=== PATIENT | female | born 1955 | race Caucasian/White ===

== ENCOUNTER → 2018-09-23 12:32 | Outpatient (CLI) | payer OTHER, SELFPAY ==
--- NOTE | 2018-09-23 | DI.MG.S_ITS ---
BILATERAL DIGITAL SCREENING MAMMOGRAM 3D/2D WITH CAD: 09/23/2018 CLINICAL: Routine screening. Comparison is made to exams dated: 09/28/2017 mammogram, 09/16/2016 mammogram, and 09/15/2015 mammogram - [facility]. The tissue of both breasts is heterogeneously dense. This may lower the sensitivity of mammography. Current study was also evaluated with a Computer Aided Detection (CAD) system. No significant masses, calcifications, or other findings are seen in either breast. There has been no significant interval change. IMPRESSION: NEGATIVE There is no mammographic evidence of malignancy. A 1 year screening mammogram is recommended. This exam was interpreted at Station ID: [id number]. NOTE: For mammograms, a report in lay terms will be sent to the patient. Approximately 15% of breast malignancies will not be visualized mammographically. In the management of a palpable breast mass, a negative mammogram must not discourage biopsy of a clinically suspicious lesion. Electronically Signed By: Raffy thompson/lacie:09/25/2018 18:09:51 letter sent: Normal Exam ACR BI-RADS Category 1: Negative 3341F
== END ==
PROVIDERS: PCP Nurse Practitioner Family; Visit Provider Nurse Practitioner Family
DX: Z12.31 Encounter for screening mammogram for malignant neoplasm of breast (principal)
CPT/HCPCS: 77063; 77067

== ENCOUNTER → 2019-02-05 14:48 | Outpatient (CLI) | payer OTHER, SELFPAY | PROVIDERS: PCP Internal Medicine; Visit Provider Internal Medicine Endocrinology, Diabetes & Metabolism | DX: M85.852 Other specified disorders of bone density and structure, left thigh (principal); Z78.0 Asymptomatic menopausal state; E07.9 Disorder of thyroid, unspecified; Z90.722 Acquired absence of ovaries, bilateral | CPT/HCPCS: 77080 ==

== ENCOUNTER → 2019-09-28 14:47 | Outpatient (CLI) | payer MEDICARE, OTHER, SELFPAY ==
--- NOTE | 2019-09-28 | DI.MG.S_ITS ---
BILATERAL DIGITAL SCREENING MAMMOGRAM 3D/2D WITH CAD: 09/28/2019 CLINICAL: Routine screening. Comparison is made to exams dated: 09/23/2018 mammogram, 09/28/2017 mammogram, and 09/16/2016 mammogram - [facility]. There are scattered fibroglandular elements in both breasts. Current study was also evaluated with a Computer Aided Detection (CAD) system. No significant masses, calcifications, or other findings are seen in either breast. There has been no significant interval change. IMPRESSION: NEGATIVE There is no mammographic evidence of malignancy. A 1 year screening mammogram is recommended. This exam was interpreted at Station ID: [id number]. NOTE: For mammograms, a report in lay terms will be sent to the patient. Approximately 15% of breast malignancies will not be visualized mammographically. In the management of a palpable breast mass, a negative mammogram must not discourage biopsy of a clinically suspicious lesion. Electronically Signed By: Josue Rodriguez M.D. at/lacie:09/28/2019 15:43:15 letter sent: Normal Exam ACR BI-RADS Category 1: Negative 3341F
== END ==
PROVIDERS: PCP Internal Medicine; Visit Provider Internal Medicine
DX: Z12.31 Encounter for screening mammogram for malignant neoplasm of breast (principal)
CPT/HCPCS: 77063; 77067

== ENCOUNTER → 2020-07-18 14:36 | Outpatient (CLI) | payer MEDICARE, OTHER, SELFPAY ==
[2020-07-19 21:42] LABS: COVID19 Sendout Not Detected (Not Detect)
== END ==
PROVIDERS: PCP Internal Medicine; Visit Provider Physician Assistant
DX: Z01.812 Encounter for preprocedural laboratory examination (principal)
CPT/HCPCS: 87635

== ENCOUNTER 2020-07-21 13:01 | Day surgery (SDC) | payer MEDICARE, OTHER, SELFPAY ==
[2020-07-21] VITALS (7 sets, daily range): BP systolic 97–155; BP diastolic 60–92; PULSE 67–99; RESP 12–17; TEMP 36.4–37.5; O2SAT 99–100; BMI 27.4
--- NOTE | 2020-07-21 12:38 | P.HP_ITS ---
History of Present Illness History of Present Illness Date Patient Seen: 07/21/20 Chief complaint: SDC Narrative: 64 year old female comes in today for consideration of a screening colonoscopy. She has had 4 lifetime colonoscopies. Last colonoscopy in 2013, normal. 5 year recall due to history of colon polyps. There have been no lower GI symptoms suggesting disease such as change in bowel habits, bleeding, abdominal pain or anemia. Mother has a history of colon polyps. Overall health issues have been stable, including no major cardiac events for at least 6 weeks. PCP: Ale Wahl Past medical history: Hyperlipidemia Hypertension Hypothyroidism GERD Depression Allergies Osteoarthritis History of colon polyps Past Surgical History: Thyroid (right Lobe and Isthmus) 11/1993 Thyroid (left Lobe)01/1994 Oopherectomy(right) - 07/1996 Total Knee Arthroplasty(right) - 10/08/2014 Hysterectomy(partial/ left ovary and Uterus) - 1998 Menisectomy (right Knee) - 2009 Tonsillectomy-1983 Family history: Mother: Colon polyps Social History: Dental Care w/in 6 mos.: yes Smoking Status: never smoker Meds Home Medications and Allergies Home Medications Medication Instructions Recorded Confirmed Type [ASCORBIC ACID] 1 tab PO QDAY #0 10/14/17 History [BIOTI] 1 cap PO QDAY #0 10/14/17 History [CITRACAL+D] PO #0 10/14/17 History [FLAXSEED OIL] 1 cap PO QDAY #0 10/14/17 History [KRILL OIL] 1 cap PO QDAY #0 10/14/17 History cyanocobalamin (vitamin B-12) 5,000 mcg SUBLINGUAL QDAY #0 10/14/17 07/21/20 History [Vitamin B-12] esomeprazole magnesium [Nexium] 40 mg PO QDAY #0 10/14/17 07/21/20 History levothyroxine 0.137 mg PO QAM #0 10/14/17 07/21/20 History lisinopril-hydrochlorothiazide 2 tab PO QDAY #0 10/14/17 07/21/20 History atorvastatin 10 mg PO BEDTIME 07/21/20 07/21/20 History sertraline 100 mg PO DAILY 07/21/20 07/21/20 History Allergies Allergy/AdvReac Type Severity Reaction Status Date / Time cephalexin [From Keflex] AdvReac Severe Vomiting Verified 07/21/20 13:18 sulfamethoxazole AdvReac Severe Vomiting Verified 07/21/20 13:18 [From Bactrim] trimethoprim [From Bactrim] AdvReac Severe Vomiting Verified 07/21/20 13:18 Review of Systems Review of Systems ROS: Yes All systems reviewed with the patient and are negative except as otherwise documented Exam Narrative Exam Narrative: GENERAL: Alert and oriented, appearing stated age and in no acute distress. HEENT: Head normocephalic/atraumatic. Pupils equal, round, and reactive to light and accomodation. Extraocular muscles intact. Tympanic membranes clear. Nasal mucosa moist, septum midline. Oral mucosa moist, no lesions. Neck soft and supple, no lymphadenopathy. LUNGS: Clear to ausculation bilaterally, no wheezes, rhonchi or rales. CV: Normal S1 and S2 with regular rate and rhythm, no audible murmurs, rubs or gallops. ABDOMEN: Soft, non-tender, non-distended, no organomegaly. Positive bowel sounds. EXTREMITIES: No clubbing, cyanosis, or edema. NEURO: Cranial nerves II through XII grossly intact, no focal deficits. PSYCH: Alert and oriented x 3. SKIN: No concerning lesions. Assessment & Plan Assessment & Plan narrative: 1. History of colon polyps 2. Family history of colon polyps 3. Screening for colon cancer Plan for colonoscopy. The nature and character of the procedure as well as anticipated results were discussed. The possibility of not completing the procedure was also discussed. Possible complications including aspiration pneum onia, bleeding, perforation and reaction to medications either for sedation or preparation and missed lesions were discussed. Questions were answered and proceeding to the colonoscopy was elected. Informed consent signed. I sincerely appreciate the referral allowing me to participate in this patient's care. Please contact me with any questions or concerns.
--- NOTE | 2020-07-21 12:42 | PM.OP.ENDO ---
Operative Date/Time/Diagnoses Date of procedure: 07/21/20 Procedure Notes SCOAP/Timeout: 2:03 p.m. Procedure in detail: ENDOSCOPIST: Tova Pascual MD Sedation RN: Odette Williamson RN Sedation start time: 2:10 p.m. Sedation end time: 2:25 p.m. PROCEDURE: Colonoscopy INDICATIONS: 1. History of colon polyps 2. Family history polyps 3. Screening for colon cancer MEDICATION: Levsin 0.125 mg sublingual, incremental doses of Versed and fentanyl until appropriate level sedation achieved. ASA CLASS: 2 CECAL WITHDRAWAL TIME: 6 minutes COMPLICATIONS: None. EXTENT OF PROCEDURE: Cecum. QUALITY OF PREP: Good with portions of liquid stool. PROCEDURE: Prior to insertion of the colonoscope, a digital rectal examination was accomplished with circumferential palpation of the distal rectal mucosa without significant findings being noted. The high-definition colonoscope was passed into the rectum in the usual fashion and advanced over to the cecum without difficulty. The ileocecal valve, appendiceal stoma, and medial wall all could be inspected and no abnormalities were seen. ASCENDING COLON: As the colonoscope was withdrawn, care was taken to expose and inspect the haustral folds and no abnormalities were seen. HEPATIC FLEXURE: Normal, no polyps, diverticula or other abnormalities. TRANSVERSE COLON: Normal, no polyps, diverticula or other abnormalities. DESCENDING COLON: Normal, no polyps, diverticula or other abnormalities. SIGMOID COLON: Normal, no polyps, diverticula or other abnormalities. RECTUM: Normal. J maneuver was produced. There was no significant perianal disease. The J maneuver was broken. The remainder of the rectum was inspected and there was no external hemorrhoid disease. The scope was withdrawn. IMPRESSION: 1. Normal colonoscopy PLAN: 1. Secondary to personal history of colon polyps and family history of colon polyps repeat colonoscopy in 5 years. The possibility of a missed lesion including a malignancy has been discussed with the patient previously. Potential alarm symptoms have been discussed and should be reported immediately.
[2020-07-21] MEDS: HYOSCYAMINE 0.125 MG TABLET PO (13:22)
[2020-07-21] MEDS: LACTATED RINGERS 1,000 ML 200 ML IV (13:34)
[2020-07-21] MEDS: MIDAZOLAM 5 MG/5 ML VIAL IV (14:08)
[2020-07-21] MEDS: fentaNYL 250 MCG/5 ML INJ IV (14:15)
== END 2020-07-21 15:18 | disposition home or self-care (01) ==
PROVIDERS: PCP Internal Medicine; Referring Provider Internal Medicine; Visit Provider Student in an Organized Health Care Education/Training Program
PROC: 0DJD8ZZ Inspection of Lower Intestinal Tract, Via Natural or Artificial Opening Endoscopic (ICD-10-PCS; CPT 45378; principal; 2020-07-21 13:45)
DX: Z12.11 Encounter for screening for malignant neoplasm of colon (principal); Z86.010 Personal history of colon polyps; I10 Essential (primary) hypertension; E78.5 Hyperlipidemia, unspecified; E03.9 Hypothyroidism, unspecified; K21.9 Gastro-esophageal reflux disease without esophagitis
CPT/HCPCS: G0105; J2250; J3010

== ENCOUNTER → 2020-09-30 15:43 | Outpatient (CLI) | payer MEDICARE, OTHER, SELFPAY ==
--- NOTE | 2020-09-30 15:46 | DI.MG.S_ITS ---
BILATERAL DIGITAL SCREENING MAMMOGRAM 3D/2D WITH CAD: 09/30/2020 CLINICAL: Routine screening. Comparison is made to exams dated: 09/30/2020 mammogram, 09/28/2019 mammogram, and 09/23/2018 mammogram - [facility]. There are scattered fibroglandular elements in both breasts. Current study was also evaluated with a Computer Aided Detection (CAD) system. No significant masses, calcifications, or other findings are seen in either breast. There has been no significant interval change. IMPRESSION: NEGATIVE There is no mammographic evidence of malignancy. A 1 year screening mammogram is recommended. This exam was interpreted at Station ID: [id number]. NOTE: For mammograms, a report in lay terms will be sent to the patient. Approximately 15% of breast malignancies will not be visualized mammographically. In the management of a palpable breast mass, a negative mammogram must not discourage biopsy of a clinically suspicious lesion. Electronically Signed By: Elma bradford/lacie:09/30/2020 16:34:14 letter sent: Normal Exam ACR BI-RADS Category 1: Negative 3341F
== END ==
PROVIDERS: PCP Internal Medicine; Referring Provider Internal Medicine; Visit Provider Internal Medicine
DX: Z12.31 Encounter for screening mammogram for malignant neoplasm of breast (principal)
CPT/HCPCS: 77063; 77067

== ENCOUNTER → 2021-04-23 14:10 | Outpatient (CLI) | payer MEDICARE, OTHER, SELFPAY | PROVIDERS: PCP Internal Medicine; Referring Provider Internal Medicine Endocrinology, Diabetes & Metabolism; Visit Provider Internal Medicine Endocrinology, Diabetes & Metabolism | DX: Z78.0 Asymptomatic menopausal state (principal); C73 Malignant neoplasm of thyroid gland; E20.9 Hypoparathyroidism, unspecified; E55.9 Vitamin D deficiency, unspecified; M85.852 Other specified disorders of bone density and structure, left thigh; Z90.722 Acquired absence of ovaries, bilateral | CPT/HCPCS: 77080 ==

== ENCOUNTER → 2021-06-25 12:45 | Outpatient (CLI) | payer MEDICARE, OTHER, SELFPAY ==
[2021-06-25 13:42] LABS: High Sensitivity CRP - Cardiac 3.2 mg/L (1.0-3.0)
[2021-06-25 13:43] LABS: Rheumatoid Factor < 8.6 IU/mL (<12.0)
[2021-06-25 13:49] LABS: Erythrocyte Sedimentation Rate 13 MM/HR (0-20)
[2021-06-27 18:17] LABS: ANA Screen, IFA Positive (.)
[2021-07-03 10:35] LABS: HLA B27 Negative (.)
== END ==
PROVIDERS: PCP Internal Medicine; Referring Provider Ophthalmology; Visit Provider Ophthalmology
DX: H15.101 Unspecified episcleritis, right eye (principal); M45.6 Ankylosing spondylitis lumbar region
CPT/HCPCS: 36415; 81374; 85651; 86038; 86140; 86430

== ENCOUNTER → 2021-10-01 13:43 | Outpatient (CLI) | payer MEDICARE, OTHER, SELFPAY ==
--- NOTE | 2021-10-01 13:46 | DI.MG.S_ITS ---
BILATERAL DIGITAL SCREENING MAMMOGRAM 3D/2D WITH CAD: 10/01/2021 CLINICAL: Routine screening. Comparison is made to exams dated: 09/30/2020 mammogram, 09/28/2019 mammogram, and 09/23/2018 mammogram - [facility]. There are scattered fibroglandular elements in both breasts. Current study was also evaluated with a Computer Aided Detection (CAD) system. No significant masses, calcifications, or other findings are seen in either breast. There has been no significant interval change. IMPRESSION: NEGATIVE There is no mammographic evidence of malignancy. A 1 year screening mammogram is recommended. This exam was interpreted at Station ID: [id number]. NOTE: For mammograms, a report in lay terms will be sent to the patient. Approximately 15% of breast malignancies will not be visualized mammographically. In the management of a palpable breast mass, a negative mammogram must not discourage biopsy of a clinically suspicious lesion. Electronically Signed By: Ar Kern M.D., jr/lacie:10/01/2021 14:05:35 letter sent: Normal Exam ACR BI-RADS Category 1: Negative 3341F
== END ==
PROVIDERS: PCP Internal Medicine; Referring Provider Internal Medicine; Visit Provider Internal Medicine
DX: Z12.31 Encounter for screening mammogram for malignant neoplasm of breast (principal)
CPT/HCPCS: 77063; 77067

== ENCOUNTER → 2022-03-08 11:39 | Outpatient (CLI) | payer MEDICARE, OTHER, SELFPAY ==
--- NOTE | 2022-03-08 | DI.MRI.S_ITS ---
PROCEDURE: MR HIP RT WO CON INDICATIONS: Unilateral primary osteoarthritis, right hip TECHNIQUE: Noncontrast coronal T1 spin echo and STIR through the bony pelvis. Coronal and axial T2 fast spin echo with fat saturation, sagittal T1 spin echo, and oblique axial T2 fast spin echo with fat saturation through the hip. COMPARISON: [facility], CR, XR PELVIS WITH LATERAL HIP RIGHT, 02/17/2022, 10:05. FINDINGS: Image quality: Excellent. Bones and joints: Moderate osseous edema is seen within the right femoral head. There is mild flattening of the superior femoral head. There is also osseous edema within the adjacent portion of the right acetabulum. Findings may be related to full-thickness cartilage loss in the right hip versus a possible small right femoral head subchondral insufficiency fracture. There is a moderate right hip effusion. No additional osseous edema is seen. Degenerative changes are seen in the pubic symphysis and in the included lower lumbar spine. Tendons and ligaments: The gluteus medius and minimus tendons appear intact, without associated muscle atrophy. The proximal iliotibial band appears intact. The iliopsoas tendon appears intact, without adjacent bursal fluid collections. The origin of the hamstring tendon is intact at the ischial tuberosity. The direct and indirect heads of the rectus femoris muscle origin appear intact. Labrum and cartilage: Full-thickness cartilage loss is seen throughout the superior portion of the right hip with subchondral edema, flattening of the superior femoral head and mild marginal osteophyte formation. There is diffuse labral degeneration and degenerative tearing. Soft tissues: Visualized muscles demonstrate normal bulk and internal signal. Quadratus femoris muscle demonstrates no internal edema to suggest ischiofemoral impingement. The proximal sciatic neurovascular bundle appears intact. The included portions of the pelvis demonstrate no acute abnormality. IMPRESSION: 1. Moderate osseous edema within the proximal femur with mild flattening of the superior femoral head articular surface may be related to overlying cartilage loss or a possibly a small subchondral insufficiency fracture. 2. Diffuse full-thickness cartilage loss throughout the superior right hip with subchondral edema, marginal osteophyte formation, and a moderate joint effusion. 3. Diffuse labral degeneration and degenerative tearing. 4. Degenerative changes in the lower lumbar spine and pubic symphysis. Dictated by: Sriram Randolph M.D. on 03/08/2022 at 12:49 Approved by: Sriram Randolph M.D. on 03/08/2022 at 12:58
[2022-03-08 13:01] LABS: Add Manual Diff / Slide Review NO; Appearance Urine UA CLEAR; Basophils Absolute Auto 0 /uL (0-100); Basophils Percent Auto 0.6 % (0-2); Bilirubin Urine UA NEGATIVE (NEGATIVE); Color Urine UA YELLOW; Eosinophils Absolute Auto 100 /uL (0-450); Eosinophils Percent Auto 3.2 % (2-4); Glucose Urine UA NEGATIVE (Negative); Hematocrit 35.3 % (36-46); Hemoglobin 12.4 g/dL (12.0-16.0); Ketones Urine UA NEGATIVE (NEGATIVE); Leukocyte Esterase Urine UA NEGATIVE (NEGATIVE); Lymphocytes Absolute Auto 1200 /uL (1100-4500); Lymphocytes Percent Auto 25.8 % (25-40); Mean Corpuscular Hemoglobin 30.8 PG (26-34); Mean Corpuscular Volume 88.1 fL (80-100); Monocytes Absolute Auto 300 /uL (0-900); Monocytes Percent Auto 6.9 % (3-14); Neutrophils Absolute Auto 3000 /uL (1500-7000); Neutrophils Percent Auto 63.5 % (50-75); Nitrite Urine UA NEGATIVE (Negative); Occult Blood Urine UA NEGATIVE (Negative); Platelet Count 198 X10^3/uL (150-400); Protein Urine UA NEGATIVE (Negative); Red Blood Cell Count 4.01 X10^6/uL (4.0-5.2); Urobilinogen Urine UA 0.2 E.U./dL (0.2); White Blood Cell Count 4.7 X10^3/uL (4.5-11.0)
[2022-03-08 13:04] LABS: pH Urine UA 7.5 (4.5-8.0)
[2022-03-08 13:11] LABS: Bacteria Urine None Seen; Culture Indicated Urine Cult Not Indicated; RBC Urine None Seen (0-5/HPF); Squamous Epithelial Cell Urine 0-1 /HPF (0-5/HPF); WBC Urine None Seen (0-5/HPF)
[2022-03-08 13:12] LABS: Hemoglobin A1C% w Est Avg Glu 5.2 % (4.0-6.0)
[2022-03-08 13:14] LABS: BUN Creatinine Ratio 17.2 (6-22); Blood Urea Nitrogen 15 mg/dL (7-17); Calcium 8.9 mg/dL (8.4-10.2); Carbon Dioxide 28 mmol/L (22-32); Chloride 99 mmol/L (98-107); Estimated Glomerular Filt Rate > 60 mL/min (>60); Glucose 109 mg/dL (80-110); HEMOLYSIS < 15 (0-50); Potassium 3.6 mmol/L (3.4-5.1); Sodium 135 mmol/L (137-145)
== END ==
PROVIDERS: PCP Internal Medicine; Referring Provider Orthopaedic Surgery; Visit Provider Orthopaedic Surgery
DX: Z01.818 Encounter for other preprocedural examination (principal); Z01.812 Encounter for preprocedural laboratory examination; M16.11 Unilateral primary osteoarthritis, right hip; S73.101A Unspecified sprain of right hip, initial encounter; M47.816 Spondylosis without myelopathy or radiculopathy, lumbar region; R73.9 Hyperglycemia, unspecified; N39.0 Urinary tract infection, site not specified
CPT/HCPCS: 36415; 73721; 80048; 81001; 83036; 85025; 93005; 93010

== ENCOUNTER → 2022-03-29 13:34 | Outpatient (CLI) | payer MEDICARE, OTHER, SELFPAY ==
[2022-03-29 15:01] LABS: COVID-19 CEPHEID PCR (VTM/NP) Negative (Negative)
== END ==
PROVIDERS: PCP Internal Medicine; Referring Provider Orthopaedic Surgery; Visit Provider Orthopaedic Surgery
DX: Z20.822 Contact with and (suspected) exposure to COVID-19 (principal)
CPT/HCPCS: U0003; U0005

== ENCOUNTER 2022-03-30 06:28 | Day surgery (SDC) | payer MEDICARE, OTHER, SELFPAY ==
[2022-03-22 12:36] VITALS: BMI 27.4
[2022-03-30] VITALS (13 sets, daily range): BP systolic 97–157; BP diastolic 60–87; PULSE 78–861; RESP 6–18; TEMP 36.1–36.6; O2SAT 93–100; BMI 27.4
--- NOTE | 2022-03-30 06:30 | DI.RAD.S_ITS ---
PROCEDURE: XR HIP W PEL IF DONE RT 2V INDICATIONS: prosthesis placement (innerOp) TECHNIQUE: 2 view(s) of the hip acquired. COMPARISON: None. FINDINGS: Bones: Patient is status post right hip arthroplasty, with hardware components in expected positions. The hip joint appears congruent. The visualized bony structures appear intact. Soft tissues: Overlying postoperative changes are noted. No suspicious soft tissue densities. IMPRESSION: Expected appearance of right total hip arthroplasty. Dictated by: Ar Kern M.D. on 03/30/2022 at 14:00 Approved by: Ar Kern M.D. on 03/30/2022 at 14:15
[2022-03-30] MEDS: ACETAMINOPHEN 325 MG TABLET 975 MG PO (06:56)
[2022-03-30] MEDS: PREGABALIN 75 MG CAPSULE PO (06:56)
[2022-03-30] MEDS: CELECOXIB 200 MG CAPSULE PO (06:56)
[2022-03-30] MEDS: LACTATED RINGERS 1,000 ML 42 ML IV ×2 (06:56→10:38)
[2022-03-30] MEDS: VANCOMYCIN 1,000 MG/200 ML PIGGYBACK 200 MG IV (07:00)
--- NOTE | 2022-03-30 07:44 | PM.PREOP ---
Pre-operative Note COVID-19 COVID-19 status: Negative Interval Note History & Physical reviewed/Exam performed by Physician: Yes Changes to H&P: No
--- NOTE | 2022-03-30 07:44 | PM.OP.1 ---
Operative Date/Time/Diagnoses Date of procedure: 03/30/22 Time of procedure: 08:00 Pre-op diagnosis: right hip OA Post-op diagnosis: same Procedure & Clinicians Procedure: right total hip arthroplasty anterior approach Same procedure as scheduled: Yes Indications: The patient has had progressively worsening right hip pain with radiographic changes consistent with arthritis. Non-operative management has failed and the patient has requested total hip replacement. The risks, benefits and alternatives to surgery were discussed with the patient prior to proceeding. Risks discussed included, but were not limited to, failure to relieve pain, leg length discrepancy, dislocation, stiffness, infection, nerve damage, deep venous thrombosis, pulmonary embolism, stroke, coma, heart attack, permanent paralysis and , as well as the potential need for eventual revision of the prosthetic. Surgeon: Hiwot Senior [employer]op Punch And Coiler Operator: Tom Denney Anesthesia Type: General and Spinal Operative Notes Findings: Severe right hip arthritis, good stability, no significant abnormality in the femoral canal Closure Type: primary Specimen(s): none sent Prosthetic devices, grafts, tissues, transplants, or devices: Size 52 R3 cup, two 6.5 mm screws, neutral poly liner, size 6 standard offset anthology, +0 head Oxinium Estimated Blood Loss (mL): 250 Blood products transfused: none Procedure in detail: The patient was brought to the operating room. Patient was carefully positioned in the supine position. Time-out was performed and antibiotics were given. Anesthesia was induced. She was positioned in the on the table in order to allow hyperextension of the hip. The right lower extremity was prepped and draped in a standard sterile fashion. An anterior right hip incision was made 1 fingerbreadth lateral to the anterior superior iliac spine and extended distally towards the greater trochanter. Dissection was carried out through skin and subcutaneous tissues. Superficial hemostasis was achieved. The fascia over the tensor fascia kristofer was defined and incised with a knife. Two Allis clamps were used to grasp the fascia. Tensor fascia kristofer was retracted laterally. A gelpi retractor was placed. Dissection was carried out down along the neck. The circumflex vessels were carefully identified and cauterized with the Aqua Mantis. There was good visualization of the femoral neck. A Cobra was placed superior to the neck and the gluteus fibers were carefully stripped from that superior aspect of the capsule. A 2nd retractor was placed along the inferior aspect of the neck. The rectus insertion along the capsule was partially released. A 3rd retractor that was then gently placed over the rim of the acetabulum under the rectus. Capsule was carefully incised and released from the intertrochanteric line circumferentially superior to the mid sagittal line and inferiorly to the mid sagittal line until the lesser trochanter was palpable. A tag stitch was placed both in the superior and inferior limb of the capsular insertion. Along the acetabulum capsule was also released up to the mid sagittal 12:00 position. A portion of the labrum was resected. A saw was used to perform an osteotomy at the level of the intertrochanteric line and the junction of the superior femoral neck leaving approximately 1 finger breath of residual inferior neck above the lesser trochanter. A 2nd cut was made along the femoral neck at the base of the head and a napkin ring of neck was removed. Corkscrew was placed in the femoral head and the head was removed without difficulty. Retractors were then repositioned around the acetabulum. Residual labrum was resected and additional osteophytes were removed. A reamer that was 4 mm below the templated size was placed by hand in the acetabulum and it was reamed to centralize the acetabulum. It was then reamed up to 2 under the templated size and fluoroscopy was brought in to confirm the position of the reaming and depth of reaming. I reamed 1 under the anticipated size. A trial cup was placed and noted that it was appropriately sized and fluoroscopy confirmed position and depth. The component was open and inserted without difficulty fluoroscopic imaging was used to confirm that the cup had been adequately seated and was well positioned. The cup was fixed with 2 screws. She had somewhat sclerotic acetabular bone. Neutral poly liner was placed. The cup was tested and noted to be stable. Attention was then directed to the femur. The femur was gently hyperextended additional capsular release was performed as needed in order to allow adequate visualization of the proximal femur with elevation of the femur. Patient was placed in a hyperextended slightly adducted position with maximum external rotation. Box osteotome was used to check for any residual neck as well as sclerotic bone along the trochanter. [place] pepper was placed in the femur. Additional broaching was performed. Canal finder was used to determine the alignment of the canal and position. Size 1 broach was placed. The canal was then appropriately broached up to the templated size as long as there was adequate stability of the broach and serial advancement of the broach without excessive impingement. Specific attention was directed at avoiding varus attempting to direct the distal aspect of the broach more anteriorly and avoiding excessive anteversion. Trial reduction showed acceptable range of motion, good stability, no posterior impingement, yarsani of leg length and appropriate lateral shuck. I also hyperflexed the hip and checked that there was no impingement anteriorly and there was good stability with flexion, adduction and internal rotation. Marcaine and Exparel were injected. The stem was placed without difficulty. Repeat trial reduction and x-ray showed acceptable overall position, length, and no evidence of the femoral fracture. Final head was placed. Wound was meticulously irrigated with normal saline. The hip was reduced and additional Exparel and Marcaine were injected. The capsule was closed with interrupted nonabsorbable sutures. The fascia of the tensor was closed with interrupted and running Vicryl. No drain was placed. Any tensor fascia kristofer muscle that appeared to be contused or injured which was a minimal amount was carefully resected. Capsule around the tensor was injected with Exparel and Marcaine. The skin was closed with barbed stitches for the subcutaneous tissue and skin. We also used surgical glue. The wound was dressed sterilely. Brief Betadine soak was also used and was meticulously irrigated with normal saline. Patient was transferred to recovery room in satisfactory condition. Complications: none Post-operative Condition: stable Disposition: Acute Care Plan for aftercare: The patient will be maintained on a standard total hip replacement protocol with weight bearing as tolerated and anterior hip precautions. The patient will receive Aspirin and sequential compression devices for DVT prophylaxis. The patient will be discharged home when safe for the home environment.
[2022-03-30] MEDS: CEFAZOLIN 2 GM/20 ML SYRINGE IV ×2 (08:15→17:11)
[2022-03-30] MEDS: TRANEXAMIC ACID 1,000 MG VIAL 1000 MG INJ ×2 (08:29→10:28)
--- NOTE | 2022-03-30 08:44 | SUR.OPER ---
Patient supine on padded [place] table, one arm on padded arm board at <90, other arm padded and secured with tape across patient's chest, both legs secured in padded traction boots and positioned per surgeon, padded post at patient's groin, pressure points checked and padded. Directed and approved by surgeon.
[2022-03-30] MEDS: BUPIVACAINE 0.5% (PF) 30 ML, EPINEPHrine 0.15 MG INJ (08:57)
[2022-03-30] MEDS: BUPIVACAINE LIPOSOME 266 MG/20 ML VIAL INJ (08:58)
--- NOTE | 2022-03-30 10:35 | DI.RAD.S_ITS ---
PROCEDURE: XR HIP W PEL IF DONE RT 2V INDICATIONS: RIGHT TOTAL HIP TECHNIQUE: AP pelvis and lateral view of the right hip acquired. COMPARISON: None. FINDINGS: Bones: Patient is status post right hip arthroplasty, with hardware components in expected positions. The hip joint appears congruent. The visualized bony structures appear intact. Soft tissues: Overlying postoperative changes are noted. No suspicious soft tissue densities. IMPRESSION: Expected postsurgical change for right hip arthroplasty. Dictated by: Casandra Garcia MD, PhD on 03/30/2022 at 16:36 Approved by: Casandra Garcia MD, PhD on 03/30/2022 at 16:37
--- NOTE | 2022-03-30 11:40 | PC.NURSE ---
Patient received from PACU to room 222, oriented to room and call light. VSS. Denies pain. Moving all extremities. Aquacel dressing in place, CDI. Ice pack on. Continue to monitor.
--- NOTE | 2022-03-30 14:50 | PT.IIE ---
Current Diagnoses Unilateral primary osteoarthritis, right hip (03/30/22) Trochanteric bursitis, right hip (03/30/22) Surgery Performed Operation Date: 03/30/22 07:45 Actual Procedures p Total Hip Arthroplasty/Anterior Approach(Right) - Hiwot Senior MD Surgical History (Last Updated 03/22/22 @ 13:03 by Shanelle Trejo RN) History of arthroplasty of right knee (10/08/14) History of bladder suspension procedure History of hysterectomy (1998) History of oophorectomy (1995) Hx of arthroscopic knee surgery (2009) Hx of thyroidectomy (1993) Hx of tonsillectomy (1983) Medical History (Last Updated 03/22/22 @ 13:21 by Shanelle Trejo RN) Allergic rhinitis Anxiety Cellulitis GERD (gastroesophageal reflux disease) Hearing loss HLD (hyperlipidemia) HTN (hypertension) Hypocalcemia Hypothyroid Osteoarthritis Scoliosis Spondylolisthesis Thyroid cancer Physical Therapy Inpatient Evaluation/Re-Eval M1 PT/OT-IP Prior Functional Status Start: 03/30/22 16:06 Freq: NEEDED Status: Active Protocol: Document 03/30/22 14:50 AB (Rec: 03/30/22 16:16 AB [email or web address]) Medical Review Prior Functional Status Medical History Reviewed Yes Communication able to make needs known Mobility and Gait pt stated that she is modified independent with all mobilities and ambulation without AD but occasionally uses a FWW or 2 walking poles depending on hip pain Social History Household Members spouse Living Arrangements House Number of Floors (Floors) Two Floors Number of Stairs To Enter/Railing? 4 steps L rail ascending to enter from the garage 13 steps B rails to get to bedroom level Home Environment Standard Height Toilet,Walk in Shower Home Equipment Front Wheel Walker,Shower Seat with Backrest,Hand Held Shower,Grab Bars In Shower Additional Social History Comment spouse Shaun will assist pt at home M2 PT-IP Current Condition Start: 03/30/22 16:06 Freq: NEEDED Status: Active Protocol: Document 03/30/22 14:50 AB (Rec: 03/30/22 16:16 AB [email or web address]) Physical Therapy Current Condition Current Condition Evaluation Date 03/30/22 Treatment Diagnosis s/p R DANIEL anterior approach; difficulty in walking Onset Date 03/30/22 M3 PT-IP Subjective Start: 03/30/22 16:06 Freq: NEEDED Status: Active Protocol: Document 03/30/22 14:50 AB (Rec: 03/30/22 16:16 AB [email or web address]) Subjective Physical Therapy Visit Type Type Initial Evaluation Visit Start Time 14:50 Visit Stop Time 15:36 Total Visit Minutes 46 Number of ACOUSTICAL MATERIAL WORKER Visits 0 Physical Therapy Visit Comments Patient Comments agreeable to do PT Therapy Pain Assessment Pain Present Pain Present Denied Pain M4 PT-IP Mobility and Gait Start: 03/30/22 16:06 Freq: NEEDED Status: Active Protocol: Document 03/30/22 14:50 AB (Rec: 03/30/22 16:16 AB [id number]) PT-Bed Mobility Assessment Supine to Sit Supine to Sit Standby Assistance Sit to Supine Sit to Supine Standby Assistance PT-Transfer Assessment Sit to and From Stand Sit to and from Stand Contact Guard Assistance Equipment Transfer Assistive Device Gait Belt,Front Wheeled Walker Orthotic/Prosthetic Devices or Brace: No Transfers Transfer Destination Toilet Transfer Technique ambulated Transfer Ability Level of Assist Contact Guard Assistance,1 Person Assistance,Use of Upper Extremities Comments Mobility Comments educated pt and spouse regarding anterior hip precautions. pt able to recall. BP in supine: 134/71. completed supine to sit SBA. able to sit on EOB SBA. completed sit to stand CGA and ambulated to the toilet using FWW CGA ~ 20 ft. completed sit to stand from the toilet using grab bar for support CGa and ambulated to the sink using FWW CGA. able to maintain standing SBA to CGA while completing handwashing. ambulated back to bed ~ 15 ft using FWW CGA. completed sit to supine SBA. positioned pt in bed. call light and table placed within reach. caregiver training set up for tomorrow with spouse at 830 am Gait Assessment Gait Gait Assistance Required: Contact Guard Assist Distance (Feet) 20 Able to Maintain Weight Bearing Status Yes During Gait Assistive Devices Assistive Device Gait Belt,Front Wheeled Walker Orthotic/Prosthetic Devices or Brace: No Gait Deviations General Gait Pattern Decreased Feet Clearance Factors Limiting Gait Function Factors Limiting Gait Function Decreased Activity Tolerance, Decreased Sensation,Decreased Strength,Limited Range of Motion,Pain,Poor Balance,Poor Safety Awareness PT-Balance Assessment Sitting Balance and Reactions Static Sitting Balance Ability Normal Dynamic Sitting Balance Ability Good Standing Balance and Reactions Static Standing Balance Ability Fair Dynamic Standing Balance Ability Fair Device Used FWW M5 PT-IP Objective Assessments Start: 03/30/22 16:06 Freq: NEEDED Status: Active Protocol: Document 03/30/22 14:50 AB (Rec: 03/30/22 16:16 AB [email or web address]) Orientation Orientation/Cognition Level of Alertness Alert Orientation Name,Place,Situation Safety Awareness Decreased Safety Awareness Memory Description No Deficits Noted,Short Term Impaired Gross Range of Motion Lower Extremity ROM Assessment Within Functional Limits Strength Lower Extremity Strength Hip 3+/5 Knee 4-/5 Coordination Assessment Gross Coordination Gross Coordination WNL Sensation Assessment Sensation Gross Sensation Right LE Impaired Comments Sensation Comments c/o numbness on R anterior thigh Muscle Tone Muscle Tone WNL Yes M6 PT-IP Treatment Start: 03/30/22 16:06 Freq: NEEDED Status: Active Protocol: Document 03/30/22 14:50 AB (Rec: 03/30/22 16:16 AB [email or web address]) Physical Therapy Treatment Education Education Provided Precautions,Weight Bearing Status,Post-Op Packet,Safety M7 PT-IP Assessment and Plan Start: 03/30/22 16:06 Freq: NEEDED Status: Active Protocol: Document 03/30/22 14:50 AB (Rec: 03/30/22 16:16 AB [email or web address]) PT Summary Assessment and Plan Potential Rehabilitation Potential Good Status of Condition at Evaluation Stable Summary Impairments Pain,ROM,Strength,Balance, Coordination,Sensation,Tone, Cognition,Bed Mobility, Transfers,Gait,Activity Tolerance Assessment Summary pt requiring CGA with mobility using FWW. pt s/p R DANIEL anterior approach and just had sx this morning. pt will likely progress during hospital stay. caregiver training set up for tomorrow at 830 am. will continue to assess progress. Goals Bed Mobility Goal Independent Transfer Goal Independent,Front Wheeled Walker Gait Goal Independent,Front Wheel Walker Gait Distance 250 Other Goals up/down 4 steps L rail ascending SBA up/down 13 steps B rails ascending SBA Days to Meet Goals 10 Frequency of Treatment Frequency Of Treatment Twice a Day Treatment Plan Physical Therapy Treatment Plan Bed Mobility Training,Transfer Training,Gait Training, Therapeutic Exercise,Balance Retraining,Post Op Education, Discharge Planning,Hot or Cold Pack,Neuromuscular Re-ed, Coordination Retraining,Manual Therapy Precautions Anterior Hip Precautions No Hip Extension,No Hip External Rotation Weight Bearing Status Weight Bearing Status Weight Bear as Tolerated Allowed Weight Bearing Amount (enter % RLE WBAT or #) (%) Recommendations To Nursing Amount of Assist Needed 1 Person Assist Discharge Recommendations PT Discharge Recommendations Home with Assistance, Outpatient PT Transportation Needs at Discharge Wheelchair/Cabulance
[2022-03-30] MEDS: IBUPROFEN 400 MG TABLET PO (17:11)
[2022-03-30] MEDS: ACETAMINOPHEN 325 MG TABLET 650 MG PO (17:11)
[2022-03-30] MEDS: ASPIRIN EC 81 MG TABLET PO (21:22)
[2022-03-30] MEDS: SERTRALINE 50 MG TABLET 100 MG PO (21:23)
[2022-03-30] MEDS: ATORVASTATIN 20 MG TABLET 10 MG PO (21:23)
[2022-03-30] MEDS: DOCUSATE 100 MG CAPSULE PO (21:23)
[2022-03-30] MEDS: SODIUM CHLORIDE 0.9% FLUSH 10 ML IV (21:26)
[2022-03-31] VITALS: BP 121/57; PULSE 89; RESP 18; TEMP 36.3; O2SAT 99
[2022-03-31] MEDS: ACETAMINOPHEN 325 MG TABLET 650 MG PO ×2 (02:11→07:44)
[2022-03-31] MEDS: CEFAZOLIN 2 GM/20 ML SYRINGE IV (02:11)
[2022-03-31] MEDS: IBUPROFEN 400 MG TABLET PO ×2 (02:11→07:44)
[2022-03-31 04:00] VITALS: BP 123/68; PULSE 82; RESP 18; TEMP 36.7; O2SAT 99
[2022-03-31 06:10] LABS: Hematocrit 26.4 % (36-46); Hemoglobin 9.4 g/dL (12.0-16.0)
--- NOTE | 2022-03-31 06:31 | PC.NURSE ---
End of shift note. Care of patient 1899 to 729. AAOX4, slept well during the night. Uses call light for assist. Up to BR with FWW, gait belt and SBA. Slow steady gait. Denies pain, getting scheduled tylenol and ibuprofen. PT to work with patient and before possible discharge home today. Patient states she has 13 steps in her home.
--- NOTE | 2022-03-31 07:34 | PM.DS.1 ---
History of Present Illness History of Present Illness Date Patient Seen: 03/31/22 Time Patient Seen: 07:34 Chief complaint: total hip Arthroplasty Anterior Approach 03/30 *OPB Narrative: Operative Date/Time/Diagnoses Date of procedure: 03/30/22 Time of procedure: 08:00 Pre-op diagnosis: right hip OA Post-op diagnosis: same Procedure & Clinicians Procedure: right total hip arthroplasty anterior approach Same procedure as scheduled: Yes Indications: The patient has had progressively worsening right hip pain with radiographic changes consistent with arthritis. Non-operative management has failed and the patient has requested total hip replacement. The risks, benefits and alternatives to surgery were discussed with the patient prior to proceeding. Risks discussed included, but were not limited to, failure to relieve pain, leg length discrepancy, dislocation, stiffness, infection, nerve damage, deep venous thrombosis, pulmonary embolism, stroke, coma, heart attack, permanent paralysis and , as well as the potential need for eventual revision of the prosthetic. Surgeon: Hiwot Senior Ms Sql Server Developer: Tom Denney Anesthesia Type: General and Spinal Operative Notes Findings: Severe right hip arthritis, good stability, no significant abnormality in the femoral canal Closure Type: primary Specimen(s): none sent Prosthetic devices, grafts, tissues, transplants, or devices: Size 52 R3 cup, two 6.5 mm screws, neutral poly liner, size 6 standard offset anthology, +0 head Oxinium Estimated Blood Loss (mL): 250 Blood products transfused: none Discharge Providers Provider Discharge Date: 03/31/22 Primary care physician: ABIGAIL Dexter Consults: 03/30/22 06:30 Consult to Anesthesiology Routine Comment: Consulting Provider: Anesthesiologist Reason for consultation: Regional block for post operative pain control 03/30/22 11:28 Consult to Discharge Planning Routine Comment: Consult to Physical Therapy Evaluate & Treat Comment: Physician Instructions: post op DANIEL protocol Consult to Respiratory Therapy Evaluate & Treat Comment: Physician Instructions: Evaluate and treat Discharge provider: Sofiya Amado PA-C Summary Hospital Course Discharge Diagnosis: s/p RIGHT total hip arthroplasty, anterior approach Hospital Course: Ms Perera's hospital course was unremarkable. On the morning of POD# 1, she was feeling well and wanted to go home. She had been OOB multiple times during the night to urinate without difficulty. She denied N/V. Her pain was well-controlled with oral medication. She did complain of some anterior thigh numbness, and I explained this was likely from her nerve block. Immediately after surgery she was having numbness and tingling in the first three digits of his right hand, but this resolved overnight. She had been evaluated by PT and would see them later in the morning to work on climbing up and down stairs. Exam Vital Signs (past 8 hours): - 03/31/22 00:00 03/31/22 04:00 Temperature 97.3 F L 98.0 F Pulse Rate 89 82 Respiratory Rate 18 18 Blood Pressure 121/57 L 123/68 Pulse Oximetry 99 99 Oxygen Flow Rate 0 0 Oxygen Delivery Method Room Air Oxygen Flow Rate 0 Narrative Exam Narrative: 5/5 strength in hip flexors, quadriceps, hamstrings, DF, PF, EHL bilaterally. Sensation to light touch intact in BLE. Calves soft, compressible, nontender and without palpable cords or masses. Aquacel dressing CDI. Objective Labs Result Diagrams: 03/31/22 05:39 Labs: Laboratory Results - last 24 hr 03/31/22 05:39 Hgb 9.4 L Hct 26.4 L PFSH Medical History (Updated 03/22/22 @ 13:21 by Shanelle Trejo RN) Allergic rhinitis Anxiety Cellulitis GERD (gastroesophageal reflux disease) Hearing loss HLD (hyperlipidemia) HTN (hypertension) Hypocalcemia Hypothyroid Osteoarthritis Scoliosis Spondylolisthesis Thyroid cancer Surgical History (Updated 03/22/22 @ 13:03 by Shanelle Trejo RN) History of arthroplasty of right knee (10/08/14) History of bladder suspension procedure History of hysterectomy (1998) History of oophorectomy (1995) Hx of arthroscopic knee surgery (2009) Hx of thyroidectomy (1993) Hx of tonsillectomy (1983) Social History household members: spouse Smoking Status: Never smoker alcohol intake: current Discharge Assessment & Plan Assessment and Plan Assessment: s/p RIGHT total hip arthroplasty, anterior approach Plan of Treatment: Discharge after PT. Multimodal pain control. ASA 81 mg BID x 6 weeks for VTE prophylaxis. WBAT w/ anterior hip precautions. F/u in office in 2 weeks. Discharge Plan Discharge Plan Patient Disposition: Home Discharge orders & Medications Discharge Orders: Discharge (Order); Ordered 03/31/22 Ordered By: Sofiya Amado Prescriptions: New oxycodone 5 mg Tablet 5 mg PO Q4-6H PRN (Reason: Pain, Moderate (4-6)) Qty: 1 0RF aspirin 81 mg Tablet,Delayed Release (Dr/Ec) 81 mg PO BID Qty: 1 0RF acetaminophen 325 mg Tablet 650 mg PO Q6HR Qty: 1 0RF docusate sodium 100 mg Capsule 100 mg PO BID PRN (Reason: constipation) Qty: 60 2RF ibuprofen 400 mg Tablet 400 mg PO Q6HR Qty: 120 1RF Rx Instructions: Do not take if taking celecoxib (Celebrex) Continued lisinopril-hydrochlorothiazide 20 MG/12.5 MG tablet 2 tab PO QDAY Qty: 0 levothyroxine 137 MCG tablet 0.137 mg PO QAM Qty: 0 esomeprazole magnesium [Nexium] 40 MG capsule,delayed release(DR/EC) 40 mg PO QDAY Qty: 0 flaxseed oil 1,000 mg Capsule 1,400 mg PO DAILY Qty: 0 Rx Instructions: administer with meals calcium citrate-vitamin D3 315 mg-5 mcg (200 unit) Tablet 8 tab PO DAILY Qty: 0 Label Comments: 3 qam, 2 qnoon, 3 qpm cyanocobalamin (vitamin B-12) [Vitamin B-12] 5,000 MCG tablet, sublingual 5,000 mcg PO QDAY Qty: 0 krill oil 500 mg Capsule 500 mg PO DAILY Qty: 0 ascorbic acid (vitamin C) [Vitamin C] 1,000 mg Tablet 1,000 mg PO DAILY Qty: 0 atorvastatin 10 mg tablet 10 mg PO BEDTIME sertraline 100 mg tablet 100 mg PO BEDTIME celecoxib 200 mg Capsule 200 mg PO DAILY PRN (Reason: Pain) alprazolam 0.25 mg Tablet 0.25 mg PO DAILY PRN (Reason: Anxiety) magnesium citrate 125 mg Capsule 125 mg PO DAILY Follow up/Referrals: Ale Wahl ARNP [Primary Care Provider] - Hiwot Senior MD [Physician] - As previously scheduled (Follow up w/ Dr Senior on 04/14/2022 @ 2:00 pm at [facility]) Diet/Activity/Treatments Diet: Diet as Tolerated Activity: Walk frequently! Weight bearing as tolerated to right leg. Anterior hip precautions. Cold/Heat Therapy: Ice to hip as needed for pain. Skin/Wound/Dressing Care Report to your healthcare provider any signs of infection, such as:: chills, fever, night sweats, unusual drainage and unusual redness Dressing: May shower. Leave Aquacel dressing in place until follow up in office. No bathing or otherwise soaking incision. Visit Report/Discharge Packet Instructions: DI for Hip Replacement Stand Alone Forms: Surgery Discharge Discharge Data Primary Care Provider: Ale Wahl Attending Provider: Hiwot Senior
[2022-03-31] MEDS: LEVOTHYROXINE 137 MCG TABLET PO (07:45)
[2022-03-31] MEDS: PANTOPRAZOLE DR 40 MG TABLET PO (07:45)
[2022-03-31] MEDS: DOCUSATE 100 MG CAPSULE PO (08:49)
[2022-03-31] MEDS: ASPIRIN EC 81 MG TABLET PO (08:49)
[2022-03-31] MEDS: hydroCHLOROthiazide 25 MG TABLET PO (08:49)
[2022-03-31 08:50] VITALS: BP 128/74; PULSE 80
[2022-03-31] MEDS: ASCORBIC ACID 500 MG TABLET 1000 MG PO (08:50)
[2022-03-31] MEDS: lisinopriL 20 MG TABLET 40 MG PO (08:50)
[2022-03-31 09:27] VITALS: BP 128/74; PULSE 80; RESP 18; TEMP 36.4; O2SAT 100
--- NOTE | 2022-03-31 09:30 | PT.IPTN ---
Current Diagnoses Unilateral primary osteoarthritis, right hip (03/30/22) Trochanteric bursitis, right hip (03/30/22) Surgery Performed Operation Date: 03/30/22 07:45 Actual Procedures p Total Hip Arthroplasty/Anterior Approach(Right) - Hiwot Senior MD Physical Therapy Treatment Note M2 PT-IP Current Condition Start: 03/30/22 16:06 Freq: NEEDED Status: Discharge Protocol: Document 03/30/22 14:50 AB (Rec: 03/30/22 16:16 AB [email or web address]) Physical Therapy Current Condition Current Condition Evaluation Date 03/30/22 Treatment Diagnosis s/p R DANIEL anterior approach; difficulty in walking Onset Date 03/30/22 M3 PT-IP Subjective Start: 03/30/22 16:06 Freq: NEEDED Status: Discharge Protocol: Document 03/31/22 09:30 AB (Rec: 03/31/22 12:44 AB [email or web address]) Subjective Physical Therapy Visit Type Type Treatment Note Visit Start Time 09:30 Visit Stop Time 10:10 Total Visit Minutes 40 Notes cheched on pt at 830am for caregiver training as scheduled but pt stated that she just got her breakfast tray and wants to eat first. informed pt and spouse that PT will come back later and agreed. Number of AMBULANCE ATTENDANT Visits 0 Therapy Pain Assessment Pain When Pain Assessed At Rest Pain Present Pain Present Pain Reported Location Right Hip Intensity 2 Scale Used Numeric (0 - 10) Pain Management Techniques Distraction,Modification of Treatment,Re-positioning, Timing of Activity with Medications M4 PT-IP Mobility and Gait Start: 03/30/22 16:06 Freq: NEEDED Status: Discharge Protocol: Document 03/31/22 09:30 AB (Rec: 03/31/22 12:44 AB [email or web address]) PT-Bed Mobility Assessment Supine to Sit Supine to Sit Standby Assistance Sit to Supine Sit to Supine Standby Assistance PT-Transfer Assessment Sit to and From Stand Sit to and from Stand Standby Assistance,Contact Guard Assistance,1 Person Assistance,Use of Upper Extremities Equipment Transfer Assistive Device Gait Belt,Front Wheeled Walker Orthotic/Prosthetic Devices or Brace: No Transfers Transfer Destination Bed,Chair Transfer Technique ambulated Transfer Ability Level of Assist Standby Assistance,Contact Guard Assistance,1 Person Assistance,Use of Upper Extremities Comments Mobility Comments pt sitting on chair and spouse in room. caregiver training conducted. educated spouse on how to use safety belt and how to assist pt. spouse was able to put safety belt on pt. assisted pt with sit to stand and pt ambulated to the bed using FWW SBA to CGA with spouse assisting. completed bed mobility sit<>supine SBA and cues for safety ang hip precautions. pt completed sit to stand from the bed SBA to CGA and spouse assisted. completed ambulation in the hallway using FWW SBA to CGA ~ 75 ft. educated pt and spouse on stair climbing. pt completed first set with PT assisisting and pt holding on to L rail with B hands and completed CGA . pt repeated with spouse assisting and able to complete safely. completed again holding on to 2 rails with spouse assisting CGA. pt assisted back to her room. ambulated from w/c to chair SBA to CGA using FWW. pt sat on chair. positioned on chair . call light and table placed within reach. pt and spouse without further concerns Gait Assessment Gait Gait Assistance Required: Standby Assistance,Contact Guard Assist Distance (Feet) 75 Able to Maintain Weight Bearing Status Yes During Gait Assistive Devices Assistive Device Gait Belt,Front Wheeled Walker Orthotic/Prosthetic Devices or Brace: No Gait Deviations General Gait Pattern Antalgic,Step-to Gait Factors Limiting Gait Function Factors Limiting Gait Function Decreased Activity Tolerance, Decreased Strength,Limited Range of Motion,Pain,Poor Balance,Poor Safety Awareness Stair Climbing Assessment Evaluation Level of Assist On Stairs Contact Guard Assistance Devices Stair Climbing Assistive Devices Left Railing,Right Railing Technique/Endurance Stair Climbing Direction Ascend and Descend Stair Climbing Technique Step to Step Number of Steps Climbed 3 Stair Climbing Set # Repetitions (reps) 3 Comments Stair Climbing Comments pls refer to mobility section for details M5 PT-IP Objective Assessments Start: 03/30/22 16:06 Freq: NEEDED Status: Discharge Protocol: Document 03/30/22 14:50 AB (Rec: 03/30/22 16:16 AB [email or web address]) Orientation Orientation/Cognition Level of Alertness Alert Orientation Name,Place,Situation Safety Awareness Decreased Safety Awareness Memory Description No Deficits Noted,Short Term Impaired Gross Range of Motion Lower Extremity ROM Assessment Within Functional Limits Strength Lower Extremity Strength Hip 3+/5 Knee 4-/5 Coordination Assessment Gross Coordination Gross Coordination WNL Sensation Assessment Sensation Gross Sensation Right LE Impaired Comments Sensation Comments c/o numbness on R anterior thigh Muscle Tone Muscle Tone WNL Yes M6 PT-IP Treatment Start: 03/30/22 16:06 Freq: NEEDED Status: Discharge Protocol: Document 03/31/22 09:30 AB (Rec: 03/31/22 12:44 AB [email or web address]) Physical Therapy Treatment Education Education Provided Precautions,Safety M7 PT-IP Assessment and Plan Start: 03/30/22 16:06 Freq: NEEDED Status: Discharge Protocol: Document 03/31/22 09:30 AB (Rec: 03/31/22 12:44 AB [email or web address]) PT Summary Assessment and Plan Potential Rehabilitation Potential Good Summary Impairments Pain,ROM,Strength,Balance, Coordination,Sensation,Tone, Cognition,Bed Mobility, Transfers,Gait,Activity Tolerance Progress Towards Goals Progressing Toward Goals Assessment Summary caregiver training conducted. spouse was able to assist pt safely. pt plans to go home today and may go home when medically stable. Goals Bed Mobility Goal Independent Transfer Goal Independent,Front Wheeled Walker Gait Goal Independent,Front Wheel Walker Gait Distance 250 Other Goals up/down 4 steps L rail ascending SBA up/down 13 steps B rails ascending SBA Days to Meet Goals 10 Frequency of Treatment Frequency Of Treatment Twice a Day Treatment Plan Physical Therapy Treatment Plan Bed Mobility Training,Transfer Training,Gait Training, Therapeutic Exercise,Balance Retraining,Post Op Education, Discharge Planning,Hot or Cold Pack,Neuromuscular Re-ed, Coordination Retraining,Manual Therapy Precautions Anterior Hip Precautions No Hip Extension,No Hip External Rotation Weight Bearing Status Weight Bearing Status Weight Bear as Tolerated Allowed Weight Bearing Amount (enter % RLE WBAT or #) (%) Recommendations To Nursing Amount of Assist Needed 1 Person Assist Discharge Recommendations PT Discharge Recommendations Home with Assistance, Outpatient PT Transportation Needs at Discharge Wheelchair/Cabulance
== END 2022-03-31 10:50 | disposition home or self-care (01) ==
LOC: OR 06:29 → AC 06:30
PROVIDERS: PCP Internal Medicine; Referring Provider Orthopaedic Surgery; Visit Provider Orthopaedic Surgery
PROC: (CPT 27130; principal; 2022-03-30 07:45)
DX: M16.11 Unilateral primary osteoarthritis, right hip (principal); M70.61 Trochanteric bursitis, right hip; I10 Essential (primary) hypertension
CPT/HCPCS: 27130; 36415; 73502; 76000; 85014; 85018; 97161; 97530; C1776; C9290; J0171; J0690; J1100; J2250; J2405; J2704; J3010

== ENCOUNTER → 2022-10-05 15:03 | Outpatient (CLI) | payer MEDICARE, OTHER, SELFPAY ==
[2022-03-30 11:44] VITALS: BMI 27.4
--- NOTE | 2022-10-05 15:05 | DI.MG.S_ITS ---
BILATERAL DIGITAL SCREENING MAMMOGRAM 3D/2D WITH CAD: 10/05/2022 CLINICAL: Routine screening. Comparison is made to exams dated: 10/01/2021 mammogram, 09/30/2020 mammogram, and 09/30/2020 mammogram - [facility]. There are scattered areas of fibroglandular density in both breasts (category b / 25%-50% glandular tissue). Current study was also evaluated with a Computer Aided Detection (CAD) system. There is a possible asymmetry in the left breast posterior depth medial region seen on the craniocaudal view only. No other significant masses, calcifications, or other findings are seen in either breast. IMPRESSION: INCOMPLETE: NEEDS ADDITIONAL IMAGING EVALUATION Possible asymmetry in the left breast seen only on CC view medially and far posteriorly. This may represent the sternalis muscle although this is not definitive. Additional views with possible ultrasound are recommended. Based on the Tyrer Cuzick model (a risk assessment model) the patient's lifetime risk is 5.0% and her 10 year risk is 2.8%. According to the ACR, ACS, and NCCN guidelines, an annual breast MRI exam along with mammogram is recommended if the patient's lifetime risk is 20% or greater. This exam was interpreted at Station ID: [id number]. NOTE: For mammograms, a report in lay terms will be sent to the patient. Approximately 15% of breast malignancies will not be visualized mammographically. In the management of a palpable breast mass, a negative mammogram must not discourage biopsy of a clinically suspicious lesion. Electronically Signed By: Ar Kern M.D. jr/:10/07/2022 11:09:11 letter sent: Additional Imaging Needed ACR BI-RADS Category 0: Incomplete [id number]
== END ==
PROVIDERS: PCP Internal Medicine; Referring Provider Internal Medicine; Visit Provider Internal Medicine
DX: Z12.31 Encounter for screening mammogram for malignant neoplasm of breast (principal)
CPT/HCPCS: 77063; 77067

== ENCOUNTER → 2022-11-08 09:39 | Outpatient (CLI) | payer MEDICARE, OTHER, SELFPAY ==
[2022-03-30 11:44] VITALS: BMI 27.4
--- NOTE | 2022-11-08 | DI.US.S_ITS ---
LIMITED ULTRASOUND OF LEFT BREAST: 11/08/2022 CLINICAL: Patient returns today to evaluate an asymmetry in the left breast. Comparison is made to exams dated: 11/08/2022 mammogram, 10/05/2022 mammogram, 10/01/2021 mammogram, 09/30/2020 mammogram, 09/30/2020 mammogram, and 09/28/2019 mammogram - [facility]. Ultrasound of the left breast upper inner quadrant was performed. Gant scale images of the real-time examination were reviewed. No significant abnormalities were seen sonographically in the left breast. Specifically, no finding to correspond to the patient's screening mammographic abnormality. The appearance most likely is due to sternalis muscle prominence. IMPRESSION: NEGATIVE Normal breast tissue and no underlying mass. There is no sonographic evidence of malignancy. Return to annual mammogram screening schedule is recommended. Findings and recommendations were conveyed to the patient at time of exam. This exam was interpreted at Station ID: [id number]. Electronically Signed By: Elma bradford/:11/08/2022 10:43:24 letter sent: Normal Exam Ultrasound BI-RADS: 1 Negative
--- NOTE | 2022-11-08 | DI.MG.S_ITS ---
UNILATERAL LEFT DIGITAL DIAGNOSTIC MAMMOGRAM 3D/2D WITH ADDITIONAL VIEWS: 11/08/2022 CLINICAL: Additional evaluation requested from prior study. Comparison is made to exams dated: 10/05/2022 mammogram, 10/01/2021 mammogram, 09/30/2020 mammogram, 08/29/2012 mammogram, 09/11/2014 mammogram, and 09/28/2019 mammogram - [facility]. There are scattered areas of fibroglandular density in the left breast (category b / 25%-50% glandular tissue). The possible asymmetry in the left breast posterior depth medial region is seen on the craniocaudal view only. This is not seen in additional views. A similar, but less prominent, finding is present on several prior studies, and compared to 2012 screening mammogram, this asymmetry has not significantly changed. No other significant masses or calcifications are seen in the breast. IMPRESSION: INCOMPLETE: NEEDS ADDITIONAL IMAGING EVALUATION The possible asymmetry in the left breast has shown halfway stability. An ultrasound is recommended to confirm no underlying mass causing more prominence on the current study. This was performed immediately following this exam. Based on the Tyrer Cuzick model (a risk assessment model) the patient's lifetime risk is 5.0% and her 10 year risk is 2.8%. According to the ACR, ACS, and NCCN guidelines, an annual breast MRI exam along with mammogram is recommended if the patient's lifetime risk is 20% or greater. This exam was interpreted at Station ID: [id number]. NOTE: For mammograms, a report in lay terms will be sent to the patient. Approximately 15% of breast malignancies will not be visualized mammographically. In the management of a palpable breast mass, a negative mammogram must not discourage biopsy of a clinically suspicious lesion. Electronically Signed By: Elma bradford/:11/08/2022 10:40:50 ACR BI-RADS Category 0: Incomplete [id number]
== END ==
PROVIDERS: PCP Internal Medicine; Referring Provider Internal Medicine; Visit Provider Internal Medicine
DX: R92.8 Other abnormal and inconclusive findings on diagnostic imaging of breast (principal)
CPT/HCPCS: 76642; 77065; G0279

== ENCOUNTER → 2023-01-31 10:24 | Outpatient (CLI) | payer MEDICARE, OTHER, SELFPAY ==
[2022-03-30 11:44] VITALS: BMI 27.4
--- NOTE | 2023-01-31 | DI.ECHO.S_ITS ---
[facility] +---------+ : : [address] : : : : [place], [place] : : : : [id number] : : : : Phone: [phone]---------+ Echocardiogram Report + + :Name: RAFFAELE PAULINO Study Date: 01/31/2023 Height: 66 in : :[facility] ReadingLocation: Weight: 170 lb : : Gender: Female BSA: 1.9 m2 : :: 1955 Age: 67 yrs BP: 128/85 mmHg: :Reason For Study: MURMUR HR: 75 : :Ordering Physician: JESICA, : :MOLLY Performed By: CINDY MANNING : :Referring: MOLLY MOONEY : + + Interpretation Summary 1) Normal left ventricular thickness, size, wall motion, and systolic function (EF 55-60%). 2) Mildly enlarged right ventricle with normal function. 3) No significant valvular abnormalities. 4) No prior Echo available for comparison. Procedure: A two-dimensional transthoracic echocardiogram with color flow and Doppler was performed. The study quality was technically adequate. There is no prior echocardiogram noted for this patient. The patient was in normal sinus rhythm during the exam. Left Ventricle: The left ventricle is normal in size and wall thickness. Left ventricular systolic function is normal. The ejection fraction is estimated to be 55-60%. Left ventricular wall motion is normal. Diastolic parameters suggest a relaxation abnormality of the left ventricle, consistent with probable normal filling pressures. Right Ventricle: The right ventricle is mildly dilated. The right ventricular systolic function is normal. Atria: The left atrial size is normal. Right atrial size is normal. There is no Doppler evidence for an interatrial shunt. Mitral Valve: The mitral valve is normal in structure and function. There is mild mitral regurgitation. Aortic Valve: The aortic valve is trileaflet. There is no aortic valve stenosis. There is trace aortic regurgitation. Tricuspid Valve: The tricuspid valve is normal in structure and function. There is mild tricuspid regurgitation. The right ventricular systolic pressure is estimated to be at least 26 mmHg based on an estimated right atrial pressure of 3 mm Hg. Pulmonic Valve: The pulmonic valve leaflets are thin and pliable; valve motion is normal. There is no pulmonic valvular regurgitation. Great Vessels: The aortic root is normal size. The ascending aorta is normal in size. The IVC is of normal diameter and collapses greater than 50% with a sniff. This suggests a low right atrial pressure of 3 mm Hg. Pericardium/ Pleura There is no pericardial effusion. There is no pleural effusion. MMode/2D Measurements & Calculations LVIDd: 4.0 cm LVOT diam: 2.0 cm LVIDs: 2.5 cm Ao root diam: 3.4 cm FS: 37.5 % asc Aorta Diam: 3.2 cm IVSd: 0.80 cm LVPWd: 1.0 cm LV garcia. diameter/BSA (cm/m^2): 2.1 LV sys. diameter/BSA (cm/m^2): 1.3 LA A2 area: 16.2 cm2 RA long axis: 5.5 cm LA A4 area: 14.7 cm2 LA length (vol): 4.5 cm LA vol: 45.2 ml LA vol index: 24.2 ml/m2 LVLs ap4: 6.1 cm LVLd ap2: 8.0 cm LVLs ap2: 6.2 cm TAPSE_phl: 3.0 cm Doppler Measurements & Calculations Ao V2 max: 141.0 cm/sec LVOT Max Brennon: 130.0 cm/sec Ao V2 mean: 97.1 cm/sec LV V1 max P.8 mmHg Ao max P.0 mmHg LV V1 VTI: 27.6 cm Ao mean P.0 mmHg SHI(I,D): 2.9 cm2 Ao V2 VTI: 29.7 cm SHI(V,D): 2.9 cm2 sev ratio: 0.93 SHI indexed to BSA (cm^2/m^2): 1.6 MV E max brennon: 75.4 cm/sec TR max brennon: 240.0 cm/sec MV A max brennon: 91.7 cm/sec TR max P.0 mmHg MV E/A: 0.82 PA V2 max: 121.0 cm/sec Med Peak E' Brennon: 9.0 cm/sec PA V2 mean: 92.8 cm/sec E/E' med: 8.4 PA mean P.0 mmHg Lat Peak E' Brennon: 8.2 cm/sec PA pr(Accel): 34.4 mmHg E/E' lat: 9.2 E/e' average: 8.8 MV dec time: 0.26 sec SV(LVOT): 86.7 ml AV VR_phl: 0.92 SHI(VTI)/BSA_phl: 1.6 MV P1/2t-pr_phl: 77.0 msec Reading Physician:12:42 PM
== END ==
PROVIDERS: PCP Internal Medicine; Referring Provider Internal Medicine; Visit Provider Internal Medicine
DX: R01.1 Cardiac murmur, unspecified (principal); I08.1 Rheumatic disorders of both mitral and tricuspid valves
CPT/HCPCS: 93306

== ENCOUNTER → 2023-10-18 15:49 | Outpatient (CLI) | payer MEDICARE, OTHER, SELFPAY ==
[2022-03-30 11:44] VITALS: BMI 27.4
--- NOTE | 2023-10-18 | DI.MG.S_ITS ---
BILATERAL DIGITAL SCREENING MAMMOGRAM 3D/2D WITH CAD: 10/18/2023 CLINICAL: Routine screening. Comparison is made to exams dated: 10/05/2022 mammogram, 10/01/2021 mammogram, and 09/30/2020 mammogram - . There are scattered areas of fibroglandular density in both breasts (category b / 25%-50% glandular tissue). Current study was also evaluated with a Computer Aided Detection (CAD) system. No significant masses, calcifications, or other findings are seen in either breast. There has been no significant interval change. IMPRESSION: NEGATIVE There is no mammographic evidence of malignancy. A 1 year screening mammogram is recommended. Based on the Tyrer Cuzick model (a risk assessment model) the patient's lifetime risk is 4.8% and her 10 year risk is 2.8%. According to the ACR, ACS, and NCCN guidelines, an annual breast MRI exam along with mammogram is recommended if the patient's lifetime risk is 20% or greater. This exam was interpreted at Station ID: [id number]. NOTE: For mammograms, a report in lay terms will be sent to the patient. Approximately 15% of breast malignancies will not be visualized mammographically. In the management of a palpable breast mass, a negative mammogram must not discourage biopsy of a clinically suspicious lesion. Electronically Signed By: Josue kim/lacie:10/19/2023 11:46:36 letter sent: Normal Exam ACR BI-RADS Category 1: Negative [id number]
== END ==
LOC: MAMMO 15:50
PROVIDERS: PCP Internal Medicine; Referring Provider Internal Medicine; Visit Provider Internal Medicine
DX: Z12.31 Encounter for screening mammogram for malignant neoplasm of breast (principal); R92.323 Mammographic fibroglandular density, bilateral breasts
CPT/HCPCS: 77063; 77067

== ENCOUNTER → 2024-10-26 15:02 | Outpatient (CLI) | payer MEDICARE, OTHER, SELFPAY ==
[2022-03-30 11:44] VITALS: BMI 27.4
--- NOTE | 2024-10-26 15:04 | DI.MG.S_ITS ---
BILATERAL DIGITAL SCREENING MAMMOGRAM 3D/2D WITH CAD: 10/26/2024 CLINICAL: Routine screening. Comparison is made to exams dated: 10/18/2023 mammogram, 10/05/2022 mammogram, 10/01/2021 mammogram, 11/08/2022 mammogram, 09/30/2020 mammogram, and 09/30/2020 mammogram - [facility]. There are scattered areas of fibroglandular density (category b / 25%-50% glandular tissue). Current study was also evaluated with a Computer Aided Detection (CAD) system. No significant masses, calcifications, or other findings are seen in either breast. There has been no significant interval change. IMPRESSION: NEGATIVE There is no mammographic evidence of malignancy. A 1 year screening mammogram is recommended. Based on the Tyrer Cuzick model (a risk assessment model) the patient's lifetime risk is 4.5% and her 10 year risk is 2.8%. According to the ACR, ACS, and NCCN guidelines, an annual breast MRI exam along with mammogram is recommended if the patient's lifetime risk is 20% or greater. This exam was interpreted at Station ID: [id number]. NOTE: For mammograms, a report in lay terms will be sent to the patient. Approximately 15% of breast malignancies will not be visualized mammographically. In the management of a palpable breast mass, a negative mammogram must not discourage biopsy of a clinically suspicious lesion. Electronically Signed By: Alicia Serrano M.D., Ph.D. faustino/lacie:10/26/2024 17:56:15 letter sent: Normal Exam ACR BI-RADS Category 1: Negative
== END ==
PROVIDERS: PCP Internal Medicine; Referring Provider Internal Medicine; Visit Provider Internal Medicine
DX: Z12.31 Encounter for screening mammogram for malignant neoplasm of breast (principal)
CPT/HCPCS: 77063; 77067

== ENCOUNTER → 2025-01-07 11:50 | Outpatient (CLI) | payer MEDICARE, OTHER, SELFPAY ==
[2022-03-30 11:44] VITALS: BMI 27.4
--- NOTE | 2025-01-07 11:52 | DI.RAD.S_ITS ---
PROCEDURE: XR DEXA AXIAL SKELETON INDICATIONS: Post-menopausal screening COMPARISON: [facility], CR, XR DEXA AXIAL SKELETON, 04/23/2021, 14:39. FINDINGS: Lumbar Spine: Bone mineral density 1.192 g/cm2, T score 1.3. There is interval 1.2% increase in total lumbar spine bone mineral density. Left Femoral Neck: Bone mineral density 0.696 g/cm2, T score -1.4. There is interval 4.5% decrease in left femoral neck bone mineral density. Left Hip: Bone mineral density 0.854 g/cm2, T score -0.7. There is interval 4.3% decrease in total left hip bone mineral density. Fracture Risk Calculation (when applicable): 10-year fracture risk of a major osteoporotic fracture 9.4 percent and of a hip fracture 1.2 percent. (T score greater or equal to -1.0 to: NORMAL) (T score from -1.1 to -2.4: OSTEOPENIA) (T score less than or equal to -2.5: OSTEOPOROSIS) IMPRESSION: Osteopenia with increased 10 year fracture risk. Follow-up guidelines as follows: Osteoporosis: Consider a repeat DEXA and Vertebral Fracture Assessment (VFA) exam in 2 years or sooner if medically necessary, to reassess this patient's status. Osteopenia: Consider a repeat DEXA in 2-3 years to reassess this patient's status, or if there is a new clinical indication. Normal: Consider a repeat DEXA in 5 years or sooner, or if there is a new clinical indication. All treatment decisions require clinical judgment and consideration of individual patient factors, including patient preferences, comorbidities, previous drug use, risk factors not captured in the FRAX model (e.g., frailty, falls, vitamin D deficiency, increased bone turnover, interval significant decline in bone density ) and possible under- or over-estimation of fracture risk by FRAX. In addition, the NOF Guide recommends that FDA-approved medical therapies be considered in postmenopausal women and men age >= 50 years with a: * Hip or vertebral (clinical or morphometric) fracture * T-score of <=-2.5 at the spine or hip * Ten-year fracture probability by FRAX of >= 3% for hip fracture or >=20% for major osteoporotic fracture. Dictated by: Jeanmarie Azul M.D. on 01/07/2025 at 16:29 Approved by: Jeanmarie Azul M.D. on 01/07/2025 at 16:30
== END ==
PROVIDERS: PCP Registered Nurse
DX: Z78.0 Asymptomatic menopausal state (principal); M85.852 Other specified disorders of bone density and structure, left thigh; E89.0 Postprocedural hypothyroidism; Z85.850 Personal history of malignant neoplasm of thyroid
CPT/HCPCS: 77080